=== PATIENT | female | born 1980 | race Caucasian/White ===

== ENCOUNTER → 2017-06-14 | Outpatient (CLI) | payer MEDICARE, OTHER ==
[~2017-06-14] MED LIST: ALBU90OI61; ALBU90OI61 INH; ALPR.5 PO; AMOX500 PO; Advair Hfa 230-12 GM INH; BENZ100A PO; BUSP10 PO; DEXGUASY PO; DIPATR PO; DOCU100 PO; Drysol35 ML; FLUSAL2505 IH; GABA300T24; HYOS.125 SL; IRON 100 PLUS1 EACH; LORPSEER24 PO; MAGOXI400; METO10 PO; MONT10T PO; Milk Of Ma400 MG/5 M PO; NAPR220; NAPR500 PO; NITR100; ONDA4 PO; OXYACE5T PO; Omeprazole20 M1; PANT20 PO; PARO20 PO; POLY17UD PO; Percocet 5-3251 EACH PO; RANI150 PO; RISP.5 PO; TRAM50; VIRAMIST PO; Zofran Odt4 MG SL; Zofran Odt8 MG SL; [UNRECOGNIZED DRUG - REMARK]; [UNRECOGNIZED DRUG - REMARK] INH
[2017-06-14 13:02] LABS: Bilirubin, Urine Neg (Neg); Blood, Urine 2+ (Neg); Glucose Qualitative, Urine Neg (Neg); Ketones, Urine Neg (Neg); Leukocyte Esterase, Urine 2+ (Neg); Nitrite, Urine Neg (Neg); Protein, Urine Neg (Neg); Specific Gravity, Urine 1.025 (1.003-1.022); Urobilinogen, Urine NORM (Normal)
[2017-06-14 13:14] LABS: Appearance, Urine Hazy (Clear); Color, Urine Yellow (P-Yellow)
[2017-06-14 13:15] LABS: Bacteria Mod /hpf; Squamous Epithelial Cells Few /hpf (Few)
[2017-06-14 14:20] LABS: Candida species (DNA Probe) Negative (NEGATIVE); G. vaginalis (DNA Probe) Negative (NEGATIVE); T. vaginalis (DNA Probe) Negative (NEGATIVE)
== END ==
LOC: LAB SHORT 12:56
PROVIDERS: Nurse Practitioner Family
DX: N76.0 Acute vaginitis (principal); R30.0 Dysuria
CPT/HCPCS: 81001; 87086; 87480; 87510; 87660

== ENCOUNTER → 2018-04-22 | Outpatient (CLI) | payer MEDICARE, OTHER ==
[2018-04-22 15:16] LABS: Candida species (DNA Probe) Negative (NEGATIVE); G. vaginalis (DNA Probe) Negative (NEGATIVE); T. vaginalis (DNA Probe) Negative (NEGATIVE)
== END | disposition home or self-care (01) ==
LOC: LAB SHORT 10:26 → LAB 10:26
PROVIDERS: Obstetrics & Gynecology
DX: N76.0 Acute vaginitis (principal)
CPT/HCPCS: 87480; 87510; 87660

== ENCOUNTER 2018-05-06 17:08 | Emergency (ER) | payer MEDICARE, OTHER ==
[~2018-05-06] VITALS: Ht 160 cm; Wt 92.1 kg
[2018-05-06] MEDS ORDERED: Hydrochloroth12.5 MG PO (17:21)
[2018-05-06 17:41] LABS: BASOPHILS ABSOLUTE AUTO 0.05 K/mm3 (0.00-0.23); BASOPHILS PERCENT AUTO 1 % (0-2); EOSINOPHILS ABSOLUTE AUTO 0.18 K/mm3 (0.00-0.68); EOSINOPHILS PERCENT AUTO 2 % (0-6); Hematocrit 42.5 % (33.0-51.0); Hemoglobin 13.4 g/dL (11.5-16.0); IMMATURE GRAN ABSOLUTE AUTO 0.01 K/mm3 (0.00-0.10); IMMATURE GRAN PERCENT AUTO 0 % (0-1); LYMPHOCYTES ABSOLUTE AUTO 3.92 K/mm3 (0.84-5.20); LYMPHOCYTES PERCENT AUTO 44 % (21-46); MONOCYTES ABSOLUTE AUTO 0.61 K/mm3 (0.16-1.47); MONOCYTES PERCENT AUTO 7 % (4-13); Mean Corpuscular HGB Conc 31.5 g/dL (31.5-36.5); Mean Corpuscular Volume 83 fL (80-100); Mean Platelet Volume 9.3 fL (9.1-12.4); NEUTROPHILS ABSOLUTE AUTO 4.25 K/mm3 (1.96-9.15); NEUTROPHILS PERCENT AUTO 47 % (41-73); Platelet Count 335 K/mm3 (150-400); RDW Coefficient Variation 12.8 % (11.7-14.2); RDW Standard Deviation 38.5 fL (35.1-46.3); Red Blood Cell Count 5.15 M/mm3 (3.80-5.20); White Blood Cell Count 9.02 K/mm3 (4.00-11.30)
[2018-05-06 17:57] LABS: Alanine Aminotransfer (ALT/SGP 27 U/L (12-78); Albumin, Blood 3.9 g/dL (3.4-5.0); Alk Phos 65 U/L (50-136); Anion Gap 7 mmol/L (6-16); Aspartate Aminotrans (AST/SGOT 14 U/L (12-37); Bilirubin, Total 0.2 mg/dL (0.1-1.0); Blood Urea Nitrogen 12 mg/dL (8-24); Bun/Creatinine Ratio 15.8 (12.0-20.0); CO2, Blood 25 mmol/L (21-32); Calcium, Blood 8.8 mg/dL (8.5-10.1); Chloride, Blood 109 mmol/L (98-108); Creatinine, Blood 0.76 mg/dL (0.40-1.00); Globulin, Blood 3.9 g/dL (2.2-4.0); Glomerular Filtration Rate >60 (60-); Glucose, Blood 93 mg/dL (70-99); Potassium, Blood 3.6 mmol/L (3.5-5.5); Sodium, Blood 141 mmol/L (136-145); Total Protein, Blood 7.8 g/dL (6.4-8.2)
[2018-05-06 17:57] LABS: Source, Urine Clean Catch
[2018-05-06 18:01] LABS: Bilirubin, Urine Neg (Neg); Blood, Urine 1+ (Neg); Glucose Qualitative, Urine Neg (Neg); Ketones, Urine Neg (Neg); Leukocyte Esterase, Urine 1+ (Neg); Nitrite, Urine Neg (Neg); Protein, Urine 1+ (Neg); Urobilinogen, Urine 1+ (Normal)
[2018-05-06 18:11] LABS: Appearance, Urine Hazy (Clear); Color, Urine Yellow (P-Yellow)
[2018-05-06 18:12] LABS: Bacteria Many /hpf; Red Blood Cells, Urine 0-2 /hpf (0-2); Squamous Epithelial Cells Mod /hpf (Few)
[2018-05-06] MEDS ORDERED: IBUP400 PO (20:14)
== END 2018-05-06 20:20 | disposition home or self-care (01) ==
LOC: ER 17:08
PROVIDERS: Emergency Medicine
DX: R10.12 Left upper quadrant pain (principal); R07.89 Other chest pain; J45.909 Unspecified asthma, uncomplicated; F41.9 Anxiety disorder, unspecified; F32.9 Major depressive disorder, single episode, unspecified; K21.9 Gastro-esophageal reflux disease without esophagitis; Z88.8 Allergy status to other drugs, medicaments and biological substances; Z79.899 Other long term (current) drug therapy; Z87.891 Personal history of nicotine dependence; Z90.710 Acquired absence of both cervix and uterus
CPT/HCPCS: 36415; 71046; 80053; 81001; 81025; 83690; 85025; 87086; 93005; 93010; 99284-25

== ENCOUNTER → 2018-09-08 | Outpatient (CLI) | payer MEDICARE, OTHER ==
[~2018-09-08] MED LIST changes: +Hydrochloroth12.5 MG PO; +IBUP400 PO
== END | disposition home or self-care (01) ==
LOC: LAB SHORT 13:41 → PLD 13:41
DX: D48.5 Neoplasm of uncertain behavior of skin (principal)
CPT/HCPCS: 88305

== ENCOUNTER 2018-11-17 21:22 | Emergency (ER) | payer MEDICARE, OTHER ==
[~2018-11-17] VITALS: Ht 160 cm; Wt 90.7 kg
[2018-11-17 21:41] LABS: Source, Urine Clean Catch
[2018-11-17 21:45] LABS: Appearance, Urine Cloudy (Clear); Bilirubin, Urine Neg (Neg); Blood, Urine 5+ (Neg); Color, Urine Yellow (P-Yellow); Glucose Qualitative, Urine Neg (Neg); Ketones, Urine Neg (Neg); Leukocyte Esterase, Urine 2+ (Neg); Nitrite, Urine Neg (Neg); Protein, Urine 1+ (Neg); Specific Gravity, Urine 1.025 (1.003-1.022); Urobilinogen, Urine NORM (Normal)
[2018-11-17 21:58] LABS: Bacteria Many /hpf; Red Blood Cells, Urine 50-100 /hpf (0-2); Squamous Epithelial Cells Mod /hpf (Few); White Blood Cells, Urine 25-50 /hpf (0-5)
[2018-11-17] MEDS ORDERED: CEPH500 PO (22:22)
== END 2018-11-17 22:46 | disposition home or self-care (01) ==
LOC: ER 21:22
PROVIDERS: Physician Assistant
DX: N39.0 Urinary tract infection, site not specified (principal); G43.909 Migraine, unspecified, not intractable, without status migrainosus; J45.909 Unspecified asthma, uncomplicated; K21.9 Gastro-esophageal reflux disease without esophagitis; F32.9 Major depressive disorder, single episode, unspecified; F41.9 Anxiety disorder, unspecified; G47.30 Sleep apnea, unspecified; Z88.8 Allergy status to other drugs, medicaments and biological substances; Z79.899 Other long term (current) drug therapy; Z87.891 Personal history of nicotine dependence
CPT/HCPCS: 81001; 87086; 96372; 99283-25; J0780; J1885

== ENCOUNTER 2018-12-07 21:19 | Emergency (ER) | payer MEDICARE, OTHER ==
[~2018-12-07] VITALS: Ht 160 cm; Wt 90.7 kg
[~2018-12-07 21:19] MED LIST changes: +CEPH500 PO
[2018-12-07] MEDS ORDERED: IRON150C (23:17)
[2018-12-07] MEDS ORDERED: EPIPEN0.3 MG/0.3 (23:17)
[2018-12-07] MEDS ORDERED: TOPI15C (23:17)
[2018-12-07] MEDS ORDERED: MAGN84 (23:17)
== END 2018-12-08 00:23 | disposition home or self-care (01) ==
LOC: ER 21:19
DX: K52.9 Noninfective gastroenteritis and colitis, unspecified (principal); F41.0 Panic disorder [episodic paroxysmal anxiety]; Z88.8 Allergy status to other drugs, medicaments and biological substances; Z79.899 Other long term (current) drug therapy; K21.9 Gastro-esophageal reflux disease without esophagitis; J45.909 Unspecified asthma, uncomplicated; F32.9 Major depressive disorder, single episode, unspecified; F41.9 Anxiety disorder, unspecified; Z87.891 Personal history of nicotine dependence
CPT/HCPCS: 99283; A9270-GY

== ENCOUNTER → 2019-03-03 | Outpatient (CLI) | payer MEDICARE, OTHER ==
[~2019-03-03] MED LIST changes: +EPIPEN0.3 MG/0.3; +IRON150C; +MAGN84; +TOPI15C
== END | disposition home or self-care (01) ==
LOC: LAB SHORT 09:30 → LAB 09:30
DX: N76.0 Acute vaginitis (principal)
CPT/HCPCS: 87070; 87205

== ENCOUNTER 2019-07-01 08:52 | Day surgery (SDC) | payer MEDICARE, OTHER ==
[~2019-07-01] VITALS: Ht 160 cm; Wt 88.4 kg
[2019-07-01] MEDS ORDERED: PRAM.125 (09:57)
[2019-07-01] MEDS ORDERED: POTA10T (09:57)
[2019-07-01] MEDS ORDERED: Echinacea & Go1 EACH (09:57)
[2019-07-01] MEDS ORDERED: Omega 3 1,0001 EACH (09:58)
[2019-07-01] MEDS ORDERED: ALBU2.5V5 (09:58)
[2019-07-01] MEDS ORDERED: Lorazepam1 MG (09:58)
== END 2019-07-01 10:56 | disposition home or self-care (01) ==
LOC: ORSCSDS 08:52
PROVIDERS: Internal Medicine Gastroenterology
PROC: 0DB68ZX Excision of Stomach, Via Natural or Artificial Opening Endoscopic, Diagnostic (ICD-10-PCS; principal; 2019-07-01 10:30)
DX: K21.9 Gastro-esophageal reflux disease without esophagitis (principal); K20.9 Esophagitis, unspecified; K44.9 Diaphragmatic hernia without obstruction or gangrene; J45.909 Unspecified asthma, uncomplicated; Z87.891 Personal history of nicotine dependence; E66.9 Obesity, unspecified; Z68.35 Body mass index [BMI] 35.0-35.9, adult; Z79.899 Other long term (current) drug therapy
CPT/HCPCS: 88305; 88342; J2704; J7120

== ENCOUNTER → 2019-07-02 | Outpatient (CLI) | payer MEDICARE, OTHER ==
[~2019-07-02] MED LIST changes: +ALBU2.5V5; +Echinacea & Go1 EACH; +Lorazepam1 MG; +Omega 3 1,0001 EACH; +POTA10T; +PRAM.125
[2019-07-02 12:00] LABS: Source, Urine Clean Catch
[2019-07-02 13:42] LABS: Bilirubin, Urine Neg (Neg); Blood, Urine 1+ (Neg); Glucose Qualitative, Urine Neg (Neg); Ketones, Urine Neg (Neg); Leukocyte Esterase, Urine Neg (Neg); Nitrite, Urine Neg (Neg); Protein, Urine Neg (Neg); Specific Gravity, Urine 1.015 (1.003-1.022); Urobilinogen, Urine NORM (Normal)
[2019-07-02 13:53] LABS: Appearance, Urine Clear (Clear); Color, Urine Yellow (P-Yellow)
[2019-07-02 13:57] LABS: Bacteria Many /hpf; Red Blood Cells, Urine 0-2 /hpf (0-2); Squamous Epithelial Cells Many /hpf (Few); White Blood Cells, Urine Not Seen /hpf (0-5)
== END | disposition home or self-care (01) ==
LOC: LAB SHORT 10:32 → LAB 10:32
PROVIDERS: Obstetrics & Gynecology
DX: R30.9 Painful micturition, unspecified (principal)
CPT/HCPCS: 81001

== ENCOUNTER → 2019-07-17 | Outpatient (CLI) | payer MEDICARE, OTHER ==
[2019-07-18 07:47] LABS: Candida species (DNA Probe) Negative (NEGATIVE); G. vaginalis (DNA Probe) Negative (NEGATIVE); T. vaginalis (DNA Probe) Negative (NEGATIVE)
== END | disposition home or self-care (01) ==
LOC: LAB 16:28 → LAB SHORT 16:28
PROVIDERS: Advanced Practice Midwife
DX: N76.0 Acute vaginitis (principal)
CPT/HCPCS: 87480; 87510; 87660

== ENCOUNTER 2021-04-10 06:18 | Day surgery (SDC) | payer MEDICARE, OTHER ==
[~2021-04-10] VITALS: Ht 160 cm; Wt 87.7 kg
[~2021-04-10 06:18] MED LIST changes: +ADVAIR HFA 230-28 GM INH; -Advair Hfa 230-12 GM INH; +CLARITIN-D 121 EAC1 PO; +FERRIC X-150150 M1 PO; -IRON150C; -LORPSEER24 PO
[2021-04-10] MEDS ORDERED: AJOVY AUTO225 MG/1.1 SC (06:55)
[2021-04-10] MEDS ORDERED: PRAMIPEXOLE0.125 M1 PO (06:56)
[2021-04-10] MEDS ORDERED: HYDCHL25 PO (06:57)
[2021-04-10] MEDS ORDERED: NAPROXEN PO (07:03)
--- NOTE | 2021-04-10 07:59 | NUR ---
04/10/21 0759 Codie Villeda BUPIVACAINE 0.5% 50 MLS MIXED WITH 0.25 ML EPI PER ORDER TO MAKE BUPIVACAINE 0.5% 1:200,000 FOR INJECTION AT OPSITE BY DR BARRON
== END 2021-04-10 09:30 | disposition home or self-care (01) ==
LOC: ORSCSDS 06:18
PROVIDERS: Orthopaedic Surgery
PROC: 0S9D4ZZ Drainage of Left Knee Joint, Percutaneous Endoscopic Approach (ICD-10-PCS; principal; 2021-04-10 07:30)
DX: M23.92 Unspecified internal derangement of left knee (principal); J45.909 Unspecified asthma, uncomplicated; Z79.899 Other long term (current) drug therapy
CPT/HCPCS: A9270; J0171; J0690; J1100; J1885; J2250; J2405; J2704; J3010; J7120

== ENCOUNTER → 2021-09-11 | Outpatient (CLI) | payer MEDICARE, OTHER ==
[~2021-09-11] MED LIST changes: +AJOVY AUTO225 MG/1.1 SC; +HYDCHL25 PO; +NAPROXEN PO; +PRAMIPEXOLE0.125 M1 PO
== END | disposition home or self-care (01) ==
LOC: LAB SHORT 13:29 → LAB 13:29
DX: R82.79 Other abnormal findings on microbiological examination of urine (principal)
CPT/HCPCS: 87086

== ENCOUNTER 2021-09-16 21:47 | Emergency (ER) | payer OTHER, MEDICARE ==
[~2021-09-16] VITALS: Ht 160 cm; Wt 88.9 kg
== END 2021-09-17 00:13 | disposition home or self-care (01) ==
LOC: ER 21:47
DX: S43.402A Unspecified sprain of left shoulder joint, initial encounter (principal); J45.909 Unspecified asthma, uncomplicated; K21.9 Gastro-esophageal reflux disease without esophagitis; V89.2XXA Person injured in unspecified motor-vehicle accident, traffic, initial encounter; Z79.899 Other long term (current) drug therapy; Z87.891 Personal history of nicotine dependence; Z88.8 Allergy status to other drugs, medicaments and biological substances
CPT/HCPCS: 73030; 73130; A9270

== ENCOUNTER → 2021-09-28 | Outpatient (CLI) | payer MEDICARE, OTHER | END | disposition home or self-care (01) | LOC: LAB SHORT 15:12 | DX: D22.5 Melanocytic nevi of trunk (principal) | CPT/HCPCS: 88305 ==

== ENCOUNTER 2022-02-28 18:48 | Emergency (ER) | payer MEDICARE, OTHER ==
[~2022-02-28] VITALS: Ht 160 cm; Wt 8.6 kg
== END 2022-02-28 21:00 | disposition home or self-care (01) ==
LOC: ER 18:48
DX: M54.2 Cervicalgia (principal); J45.909 Unspecified asthma, uncomplicated; D18.09 Hemangioma of other sites; Z88.8 Allergy status to other drugs, medicaments and biological substances; Z88.3 Allergy status to other anti-infective agents; Z79.899 Other long term (current) drug therapy; Z87.891 Personal history of nicotine dependence
CPT/HCPCS: J1885

== ENCOUNTER → 2022-07-06 | Outpatient (CLI) | payer MEDICARE, OTHER ==
[2022-07-07 14:51] LABS: Candida species (DNA Probe) Negative (NEGATIVE); G. vaginalis (DNA Probe) Negative (NEGATIVE); T. vaginalis (DNA Probe) Negative (NEGATIVE)
[2022-07-08 19:05] LABS: CHLAMYDIA TRACHOMATIS, NAA Negative (Negative)
== END | disposition home or self-care (01) ==
LOC: LAB SHORT 15:29
PROVIDERS: Obstetrics & Gynecology
DX: N89.8 Other specified noninflammatory disorders of vagina (principal)
CPT/HCPCS: 87480; 87491; 87510; 87591; 87660

== ENCOUNTER 2023-02-14 14:02 | Day surgery (SDC) | payer MEDICARE, OTHER ==
[~2023-02-14] VITALS: Ht 160 cm; Wt 86.1 kg
[2023-02-14] MEDS ORDERED: OMEP20ER (14:18)
[2023-02-14] MEDS ORDERED: PRAM.125 (14:18)
[2023-02-14 16:17] VITALS: BP 109/70
--- NOTE | 2023-02-14 16:25 | NUR ---
02/14/23 7895 ISACC MENDOZA PT ABDOMEN PAIN WAS TOLERABLE PER PT. EDUCATED PT ABOUT PASSING GAS AND MOVING WILL HELP FEEL BETTER. TOLD PT TO CALL IF PAIN WERE TO WORSEN DESPITE TAKING HER OTC PAIN MEDICINE.
== END 2023-02-14 16:09 | disposition home or self-care (01) ==
LOC: ORSCSDS 14:02
PROVIDERS: Surgery
PROC: 0DBN8ZX Excision of Sigmoid Colon, Via Natural or Artificial Opening Endoscopic, Diagnostic (ICD-10-PCS; principal; 2023-02-14 15:15)
DX: K59.00 Constipation, unspecified (principal); R10.9 Unspecified abdominal pain; K64.2 Third degree hemorrhoids; K63.5 Polyp of colon; J45.909 Unspecified asthma, uncomplicated; F32.A Depression, unspecified; Z87.891 Personal history of nicotine dependence; E78.5 Hyperlipidemia, unspecified; K21.9 Gastro-esophageal reflux disease without esophagitis; F43.10 Post-traumatic stress disorder, unspecified; F41.1 Generalized anxiety disorder; Z79.899 Other long term (current) drug therapy
CPT/HCPCS: 88305; J0461; J2001; J2250; J2405; J2704; J7120

== ENCOUNTER → 2024-05-12 | Outpatient (CLI) | payer MEDICARE, OTHER ==
[~2024-05-12] MED LIST changes: +OMEP20ER
== END ==
LOC: LAB 13:49 → LAB SHORT 13:49
DX: N76.4 Abscess of vulva (principal)
CPT/HCPCS: 87070; 87075; 87076; 87205

== ENCOUNTER 2024-06-25 08:12 | Day surgery (SDC) | payer MEDICARE, OTHER ==
[~2024-06-25] VITALS: Ht 160 cm; Wt 82.6 kg
[2024-06-25] MEDS ORDERED: Flonase 0.05% N16 GM (08:51)
[2024-06-25] MEDS ORDERED: Acerola C500 MG (08:51)
[2024-06-25] MEDS ORDERED: MELOXICAM (08:52)
[2024-06-25] MEDS ORDERED: AJOVY AUTO225 MG/1.1 (08:53)
[2024-06-25] MEDS ORDERED: PROBIOTICS1 EACH (08:54)
[2024-06-25] MEDS ORDERED: POLY500 (08:54)
[2024-06-25] MEDS ORDERED: Lactated Ringer's 1,000 ML IV ONE ×2 (09:23→09:35)
[2024-06-25] MEDS ORDERED: propofoL 50 ML IV ONE ×2 (09:35→10:11)
[2024-06-25 11:00] VITALS: BP 110/84
== END 2024-06-25 10:58 | disposition home or self-care (01) ==
LOC: ORSCSDS 08:12
PROVIDERS: Surgery
PROC: 0DBL8ZX Excision of Transverse Colon, Via Natural or Artificial Opening Endoscopic, Diagnostic (ICD-10-PCS; principal; 2024-06-25 09:45)
PROC: 0DBM8ZX Excision of Descending Colon, Via Natural or Artificial Opening Endoscopic, Diagnostic (ICD-10-PCS; principal; 2024-06-25 09:45)
PROC: 0DBN8ZX Excision of Sigmoid Colon, Via Natural or Artificial Opening Endoscopic, Diagnostic (ICD-10-PCS; principal; 2024-06-25 09:45)
DX: K59.01 Slow transit constipation (principal); K64.2 Third degree hemorrhoids; D12.3 Benign neoplasm of transverse colon; K63.5 Polyp of colon; K64.9 Unspecified hemorrhoids; J45.909 Unspecified asthma, uncomplicated; F41.1 Generalized anxiety disorder; K21.9 Gastro-esophageal reflux disease without esophagitis; E78.5 Hyperlipidemia, unspecified; F43.10 Post-traumatic stress disorder, unspecified; G25.81 Restless legs syndrome; Z79.899 Other long term (current) drug therapy; Z87.891 Personal history of nicotine dependence
CPT/HCPCS: 88305; J2704; J7120

== ENCOUNTER → 2025-01-23 | Outpatient (CLI) | payer MEDICARE, OTHER ==
[~2025-01-23] MED LIST changes: +AJOVY AUTO225 MG/1.1; +Acerola C500 MG; +Flonase 0.05% N16 GM; +MELOXICAM; +POLY500; +PROBIOTICS1 EACH
== END ==
LOC: LAB SHORT 12:50 → LAB 12:50
DX: R10.9 Unspecified abdominal pain (principal)
CPT/HCPCS: 87086